=== PATIENT | female | born 1970 | race Caucasian/White ===

== ENCOUNTER 2017-06-30 17:35 | Inpatient (IN) ==
--- NOTE | 2017-06-30 18:14 | Emergency Department Report ---
Abdominal Pain HPI - General Chief Complaint: Abdominal Pain <Destin Vasquez 06/30/17 21:39> Stated Complaint: Lower abd pain <Destin Vasquez 06/30/17 21:39> Time Seen by Provider: 06/30/17 18:01 <Destin Vasquez 06/30/17 21:39> Source: patient, family <Leeanna Olvera 06/30/17 18:17> Mode of arrival: ambulatory <Leeanna Olvera 06/30/17 18:17> Limitations: no limitations <Leeanna Olvera 06/30/17 18:17> - History of Present Illness HPI narrative: Pt began having back pain saturday night which then moved to lower abd early saturday morning. Pt states pain has continued since, describes as cramping sharp pain. Denies N/V/D. reports last BM was saturday 2 days ago and has decreased appetite and po intake. Pain improves with rest worse with activity. Surgical history hyst 4 years ago <Leeanna Olvera 06/30/17 18:17> MD complaint: abdominal pain <Leeanna Olvera 06/30/17 18:17> Onset (ago): day(s) <Leeanna Olvera 06/30/17 18:17> Consistency: colicky <Leeanna Olvera 06/30/17 18:17> Location: LLQ, RLQ, epigastric <Leeanna Olvera 06/30/17 18:17> Severity: moderate <Leeanna Olvera 06/30/17 18:17> Quality: cramping, sharp <Leeanna Olvera 06/30/17 18:17> Radiation: none <Leeanna Olvera 06/30/17 18:17> Relieving factors: rest <Leeanna Olvera 06/30/17 18:17> Exacerbating factors: movement <Leeanna Olvera 06/30/17 18:17> Associated symptoms: denies other symptoms <Leeanna Olvera 06/30/17 18: 17> - Related Data Home Medications Medication Instructions Recorded Confirmed Celebrex (Celecoxib) 50 mg capsule 100 mg PO BID 03/21/17 06/30/17 cholecalciferol (vitamin D3) 1,000 1,000 unit PO BID 03/21/17 06/30/17 unit capsule fluoxetine 40 mg capsule 40 mg PO BID 03/21/17 06/30/17 Ultram (Tramadol) 50 mg tablet 50 mg PO DAILY PRN #0 06/03/17 06/30/17 amitriptyline 10 mg tablet 10 mg PO HS PRN tab 06/03/17 06/30/17 aspirin 81 mg tablet,delayed 81 mg PO DAILY tab 06/03/17 06/30/17 release duloxetine 30 mg capsule,delayed 30 mg PO DAILY cap 06/03/17 06/30/17 release multivitamin tablet 1 tab PO QAM 06/03/17 06/30/17 Plexus Supplements 1 dose PO DAILY 06/30/17 06/30/17 Previous Rx's Medication Instructions Recorded cyclobenzaprine 10 mg tablet 10 mg PO HS #90 tab 04/15/17 Prilosec (Omeprazole) 40 mg 40 mg PO DAILY #90 cap 04/25/17 capsule,delayed release amlodipine 5 mg tablet 5 mg PO BID #180 tab 05/02/17 metformin 1,000 mg tablet 1,000 mg PO BID #180 tab 05/24/17 estradiol 1 mg tablet 1 mg PO DAILY #90 tab 05/29/17 alprazolam 1 mg tablet 1 mg PO BID PRN #60 tab 06/06/17 topiramate 50 mg tablet 50 mg PO BID #180 tab 06/06/17 <Destin Vasquez 06/30/17 21:39> Allergies Allergy/AdvReac Type Severity Reaction Status Date / Time metoclopramide [From Reglan] Allergy Verified 06/30/17 17:46 <Destin Vasquez 06/30/17 21:39> Review of Systems All systems: reviewed and negative except as stated <Leeanna Olvera 08/06 18:17> Constitutional: Denies: fever, chills <Leeanna Olvera 06/30/17 18:17> Cardiovascular: Denies: chest pain <Leeanna Olvera 06/30/17 18:17> Gastrointestinal: Reports: abdominal pain. Denies: nausea, vomiting, diarrhea, constipation <Leeanna Olvera 06/30/17 18:17> Genitourinary: Denies: urgency, dysuria <Leeanna Olvera 06/30/17 18:17> [facility] Patient Stated Medical History Hypertension Yes Clinic Medical History (Last Updated 06/03/17 @ 13:04 by Eliana Alexander LPN) HTN (hypertension) (Chronic Medical) Major depressive disorder, recurrent, mild (Chronic Medical) Fibromyalgia (Chronic Medical) Osteoarthritis (Chronic Medical) Low back pain (Chronic Medical) Obesity (Chronic Medical) <Destin Vasquez - 06/30/17 21:39> Clinic Medical History (Last Updated 06/03/17 @ 13:04 by Eliana Alexander LPN) HTN (hypertension) (Chronic Medical) Major depressive disorder, recurrent, mild (Chronic Medical) Fibromyalgia (Chronic Medical) Osteoarthritis (Chronic Medical) Low back pain (Chronic Medical) Obesity (Chronic Medical) <Leeanna Olvera 06/30/17 18:17> Surgical History: Tonsillectomy 1983. Lap hysterectomy with BSO 05/2012. Hemorrhoidectomy as larry. in HS <Leeanna Olvera 06/30/17 18:17> Family History: Family History (Last Updated 06/03/17 @ 13:11 by Eliana Alexander LPN) Mother Obesity Pre-diabetes prior to wt loss Father CVA (cerebral vascular accident) possible Unknown Diabetes mellitus multiple grandparents <Destin Vasquez - 06/30/17 21:39> Family History (Last Updated 06/03/17 @ 13:11 by Eliana Alexander LPN) Mother Obesity Pre-diabetes prior to wt loss Father CVA (cerebral vascular accident) possible Unknown Diabetes mellitus multiple grandparents <Leeanna Olvera 06/30/17 18:17> - Social History Smoking status: Never smoker <Leeanna Olvera 06/30/17 18:17> Physical Exam - Limitations Limitations: no limitations <Leeanna Olvera 06/30/17 18:17> - General General appearance: alert, in no apparent distress <Leeanna Olvera 06/30 18:17> - Normal Exams: Eyes:: Pupils are PERRLA w/ EOMI <Leeanna Olvera 06/30/17 18:17> Neck:: Full range of motion <Leeanna Olvera 06/30/17 18:17> Chest/Respirations:: Clear all larkin, with good airflow, and symmetry bilaterally <Leeanna Olvera 06/30/17 18:17> Cardiovascular:: Regular rate and rhythm, without murmur or gallop, Pulses 2+ all extremities <Leeanna Olvera 06/30/17 18:17> Musculoskeletal:: No tenderness, good range of motion <Leeanna Olvera 18:17> Integumentary:: No rashes <Leeanna Olvera 06/30/17 18:17> Neurological:: Patient is alert, and oriented <Leeanna Olvera 06/30/17 18:17> Psychiatric:: Patient exhibits, appropriate attention, emotion and affect < Leeanna Olvera 06/30/17 18:17> - Abdominal Exam Abdominal exam: Present: soft, tenderness, guarding, hypoactive bowel sounds. Absent: distention <Leeanna Olvera 06/30/17 18:17> Course - Consultations Consultation #1: Dr Finnegan <Leeanna Olvera 06/30/17 20:11> Time: 19:52 <Leeanna Olvera 06/30/17 20:11> Consultation #2: Dr Hennessy <MayLeeanna Vogel 06/30/17 20:11> Time: 19:59 <Leeanna Olvera 06/30/17 20:11> Vital Signs Temperature 98.4 F 06/30/17 17:38 Pulse Rate 84 06/30/17 17:38 Respiratory Rate 14 06/30/17 17:38 Blood Pressure 133/71 06/30/17 17:38 Pulse Oximetry 96 06/30/17 17:38 Temperature 97.6 F 06/30/17 20:45 Pulse Rate 71 06/30/17 20:45 Respiratory Rate 18 06/30/17 20:45 Blood Pressure 140/81 H 06/30/17 20:45 Pulse Oximetry 100 06/30/17 20:45 <Destin Vasquez - 06/30/17 21:39> Vital Signs Temperature 98.4 F 06/30/17 17:38 Pulse Rate 84 06/30/17 17:38 Respiratory Rate 14 06/30/17 17:38 Blood Pressure 133/71 06/30/17 17:38 Pulse Oximetry 96 06/30/17 17:38 Temperature 98.4 F 06/30/17 17:38 Pulse Rate 84 06/30/17 17:38 Respiratory Rate 14 06/30/17 17:38 Blood Pressure 133/71 06/30/17 17:38 Pulse Oximetry 96 06/30/17 17:38 <Leeanna Olvear - 06/30/17 18:17> Abdominal Pain - MDM Narrative Medical decision making narrative: Antibiotic therapy to handled by hospitalist service at request of accepting physician. <Destin Vasquez - 06/30/17 21:39> Pt presents with "sharp cramping" abd pain x 2 days. Denies N/V/D, but dies have decreased appetite, and pain that improves with rest. Significant labs with no acute findings. V rad read of CT abd shows acute sigmoid duverticulitis with a contained perforation and pericolonic phlegmon, but no coalescent abscess. Dr Finnegan notified of pt and condition, he states pt is non surgical and can be treated with antibiotics and to call tele hospitalist for admit with surgical consult. Dr Hennessy per tele hospitalist agreed to accept pt. <Leeanna Olvera - 06/30/17 20:11> - Differential Diagnosis Differential diagnosis: Likely: abdominal pain, calculus of kidney, constipation , small bowel obstruction <Leeanna Olvera 06/30/17 18:17> - Medical Records Attestation: I reviewed the patient's medical records. <Leeanna Olvera 06/30/17 20:11> - Lab Data Attestation: I reviewed the patient's lab results. <Leeanna Olvera 06/30 20:11> Result diagrams: 06/30/17 18:26 06/30/17 18:26 <Destin Vasquez - 06/30/17 21:39> Lab Results 06/30/17 06/30/17 06/30/17 Range/Units 18:26 18:26 18:26 WBC 10.1 (4.5-11.0) T/MM3 RBC 4.07 (4.00-5.20) M/MM3 Hgb 12.8 (12-16) GM/DL Hct 38.7 (36-46) % MCV 95.1 (80-100) UM3 MCH 31.4 (26-34) UUG MCHC 33.1 (31-37) GM/DL RDW Std Deviation 45.3 (36.9-50.2) FL Plt Count 329 (130-400) T/MM3 MPV 9.6 (9.4-12.4) UM3 Immature Gran % (Auto) 0.2 (0.0-0.5) % Neut % (Auto) 65.3 (33-66) % Lymph % (Auto) 27.7 (23-45) % [place] % (Auto) 5.6 (0-9.0) % Eos % (Auto) 1.0 (0-4) % Baso % (Auto) 0.2 (0-2) % Neut # 6.6 (1.8-7.7) T/MM3 Lymph # 2.8 (1-4.8) T/MM3 [place] # 0.6 (0-0.8) T/MM3 Eos # 0.1 (0-0.5) T/MM3 Baso # 0.0 (0-0.2) T/MM3 Abs Immat Gran (auto) 0.02 (0.00-0.03) T/MM3 Turbidity < 20 (0-20) Sodium 145 H (134-144) MEQ/L Potassium 4.1 (3.6-5) MEQ/L Chloride 110 H (98-107) MEQ/L Carbon Dioxide 25 (22-30) MEQ/L Anion Gap 10 (5-15) MEQ/L BUN 9.0 (7-17) MG/DL Creatinine 0.7 (0.7-1.2) MG/DL GFR Calculation 90 BUN/Creatinine Ratio 13 (6-26) RATIO Glucose 90 (65-110) MG/DL Calculated Osmolality 278 (261-280) MOSM/KG Calcium 9.5 (8.4-10.2) MG/DL Total Bilirubin 0.50 (0.20-1.30) MG/DL Icterus Index < 2 (0-7) AST 12 L (14-36) U/L ALT 29 (9-52) U/L Alkaline Phosphatase 88 (38-126) U/L Troponin I < 0.012 (0-0.12) ng/ml Total Protein 7.3 (6.3-8.2) G/DL Albumin 4.3 (3.5-5.0) G/DL Globulin 3.0 (2.4-3.6) G/DL Albumin/Globulin Ratio 1.4 (1.1-2.2) RATIO Specimen Hemolysis < 15 (0-25) Ur Collection Type Urine, clean catch Urine Color Yellow (YELLOW) Urine Clarity Clear Urine pH 5.5 (5.0-8.0) Ur Specific [place] 1.015 (1.015-1.025) Urine Protein Negative (NEGATIVE) Urine Glucose (UA) Negative (NEGATIVE) Urine Ketones Negative (NEGATIVE) Urine Occult Blood Negative (NEGATIVE) Urine Nitrate Negative (NEGATIVE) Urine Bilirubin Negative (NEGATIVE) Urine Urobilinogen 0.2 (NORMAL) EU/DL Ur Leukocyte Esterase Negative (NEGATIVE) Urinalysis Comment Microscopic not ind. <Destin Vasquez 06/30/17 21:39> - Radiology Data Attestation: I reviewed the patient's radiology results. <Leeanna Olvera R 06/30/17 20:11> per V rad read <Leeanna Olvera R 06/30/17 20:11> Disposition Clinical Impression: Fibromyalgia Diverticulitis Qualifiers: Diverticulitis site: large intestine Diverticulitis bleeding: without bleeding Diverticulitis complication: with perforation and without abscess Qualified Code (s): K57.20 - Diverticulitis of large intestine with perforation and abscess without bleeding HTN (hypertension) Qualifiers: Hypertension type: essential hypertension Qualified Code(s): I10 - Essential ( primary) hypertension Abdominal pain Qualifiers: Abdominal location: left lower quadrant Qualified Code(s): R10.32 - Left lower quadrant pain <Destin Vasquez 06/30/17 21:39> Disposition: 02 To [facility] Acute Care <Destin Vasquez 06/30/17 21:39> Condition: Stable for Transport <Destin Vasquez 06/30/17 21:39> Care Plan: Physician Care Plan Problem: Diverticulitis Goal: Follow up with primary care provider Instructions: Take medications and follow care plan as discussed/written < Destin Vasquez - 06/30/17 21:39> Prescriptions: No Action Plexus Supplements 1 dose PO DAILY cyclobenzaprine 10 mg tablet 10 mg PO HS #90 tab metformin 1,000 mg tablet 1,000 mg PO BID #180 tab estradiol 1 mg tablet 1 mg PO DAILY #90 tab Ultram (Tramadol) 50 mg tablet 50 mg PO DAILY PRN #0 PRN Reason: pain amitriptyline 10 mg tablet 10 mg PO HS PRN tab PRN Reason: Prn Orders aspirin 81 mg tablet,delayed release 81 mg PO DAILY tab duloxetine 30 mg capsule,delayed release 30 mg PO DAILY cap topiramate 50 mg tablet 50 mg PO BID #180 tab Prilosec (Omeprazole) 40 mg capsule,delayed release 40 mg PO DAILY #90 cap amlodipine 5 mg tablet 5 mg PO BID #180 tab multivitamin tablet 1 tab PO QAM alprazolam 1 mg tablet 1 mg PO BID PRN #60 tab PRN Reason: insomnia <Destin Vasquez - 06/30/17 21:39> Referrals: Amandeep Hartley MD [Family Provider] - <Destin Vasquez - 06/30/17 21: 39> Time of Disposition: 20:11 <Leeanna Olvera - 06/30/17 20:11> - Seen By: midlevel <Leeanna Olvera - 06/30/17 20:11>
[2017-06-30] MEDS: SALINE FLUSH 10ml SYRINGE IVF PRN ×2 (18:27→20:51)
--- OUTSIDE RECORDS SUMMARY | 2017-06-30 18:58 | External Medical Summary | Referral Summary ---
:1970 Author Care Team Providers Name Role Phone Amandeep Hartley Primary Care Physician Encounter [facility] [id number] Date(s): 02/16/15 - 02/16/15 [facility] [address] [place], [place] [address] Discharge Diagnosis: Osteoarthritis Discharge Diagnosis: Back pain Discharge Diagnosis: Hyperkalemia Discharge Diagnosis: Edema Discharge Disposition: Home or Self Care Attending Physician: Huyen Frey MD Admitting Physician: Huyen Frey MD Referring Physician: Amandeep Hartley MD Vital Signs Most recent to oldest [Reference Range]: 1 Temperature Oral [35.8-37.3 degC] 36.7 degC (02/16/15 3:25 PM) Peripheral Pulse Rate [60-100 bpm] 93 bpm (02/16/15 3:25 PM) Blood Pressure [90-140/60-90 mmHg] 138/86 mmHg (02/16/15 3:25 PM) Problem List Condition Effective Dates Status Health Status Informant Depression(Confirmed) Active Fibromyalgia(Confirmed) Active Insomnia(Confirmed) Active Migraine(Confirmed) Active Obesity(Confirmed) Active patient Allergies, Adverse Reactions, Alerts Substance Reaction Severity Status Reglan Active Medications Aspir-Low 81 mg, Oral, Daily, 0 Refill(s) Start Date: 02/02/15 Status: Orderedcyclobenzaprine 10 mg oral tablet 1 tabs, Oral, Bedtime (once a day), as needed for spasm, # 30 tabs, 0 Refill(s) Start Date: 02/02/15 Status: OrderedCymbalta 60 mg oral delayed release capsule 1 caps, Oral, Daily, 0 Refill(s) Start Date: 02/02/15 Status: Orderedestradiol 1 mg oral tablet 1 tabs, Oral, Daily, 0 Refill(s) Start Date: 02/02/15 Status: OrderedFLUoxetine 40 mg oral capsule 1 caps, Oral, Daily, 0 Refill(s) Start Date: 02/02/15 Status: Orderedgabapentin 300 mg oral capsule 1 caps, Oral, TID, # 90 caps, 2 Refill(s), Pharmacy: [id number], 1 caps Oral TID Start Date: 02/16/15 Status: Orderedhydrochlorothiazide 12.5 mg oral tablet 1 tabs, Oral, Daily, # 30 tabs, 2 Refill(s), Pharmacy: [id number], 1 tabs Oral Daily Start Date: 02/16/15 Status: Orderedibuprofen 200 mg oral tablet tabs, Oral, q6hr, 0 Refill(s) Start Date: 02/02/15 Status: OrderedNorvasc 5 mg oral tablet 1 tabs, Oral, BID, 0 Refill(s) Start Date: 02/02/15 Status: Orderedomeprazole 40 mg oral delayed release capsule 1 caps, Oral, Daily, 0 Refill(s) Start Date: 02/02/15 Status: Orderedsenna 2 tabs, Oral, Bedtime (once a day), 0 Refill(s) Start Date: 02/02/15 Status: OrderedtraMADol 50 mg oral tablet 1 tabs, Oral, BID, as needed for pain, 0 Refill(s) Start Date: 02/02/15 Status: OrderedTylenol Extra Strength mg, Oral, q6hr, 0 Refill(s) Start Date: 02/02/15 Status: OrderedXanax 1 mg oral tablet 1 tabs, Oral, Bedtime (once a day), as needed for anxiety, 0 Refill(s) Start Date: 02/02/15 Status: Ordered Results No data available for this section Immunizations No data available for this section Procedures Procedure Date Related Diagnosis Body Site Hysterectomy Tonsillectomy Social History Social History Type Response Smoking Status Never smoker; Type: Cigarettes Assessment and Plan Extracted from: Title: Office note Author: Huyen Frey MD Date: 02/16/15 Assessment/Plan 1.Osteoarthritis She has osteoarthritis. She is improved with the gabapentin. We will continue to 300 mg 3 times a day. 2.Back pain She has some continued back pain. We discussed possibly trying a TENS unit and she was given a prescription. We also discussed considering the epidural injections which she will consider more. 3.Edema She may be having fluid retention from the gabapentin. I will try low dose of diuretic. 4.Hyperkalemia She has had a mild hyperkalemia of unclear etiology. She believes that she has been tested for adrenal sufficiency previously. She is not clear regarding other evaluation in the past. She also was noted on her lab work to have mild hypocalcemia with a normal albumin so does not appear to be secondary to low abdomen level. These may improved with the hydrochlorothiazide thou gh the etiology is not known. I will defer to her primary care doctor if any further evaluation or monitoring is needed for these findings. Follow-up in 2 months. Orders: gabapentin, 1 caps, Oral, TID, # 90 caps, 2 Refill(s), Pharmacy: [id number], 1 caps Oral TID hydrochlorothiazide, 1 tabs, Oral, Daily, # 30 tabs, 2 Refill(s), Pharmacy: [id number], 1 tabs Oral Daily
--- OUTSIDE RECORDS SUMMARY | 2017-06-30 18:58 | External Medical Summary | Referral Summary ---
:1970 Author Organization [facility] Address [address] [place] [address] ROS[place] Solano [address] Care Team Providers Name Role Phone Amandeep Hartley Primary Care Physician Encounter [facility] Date(s): 04/14/15 - 04/14/15 [facility] [address] [place] [address] [place] [phone] [place] Discharge Diagnosis: Lower back pain Discharge Diagnosis: Radiculopathy Discharge Disposition: 01-Home or Self Care Attending Physician: Huyen Frey MD Admitting Physician: Huyen Frey MD Referring Physician: Amandeep Hartley MD Vital Signs Most recent to oldest [Reference Range]: 1 Peripheral Pulse Rate [60-100 bpm] 87 bpm (04/14/15 3:03 PM) Blood Pressure [90-140/60-90 mmHg] 138/90 mmHg (04/14/15 3:03 PM) Problem List Condition Effective Dates Status [...] 02/02/15 Status: Orderedgabapentin 300 mg oral capsule 300 mg 1 caps, Oral, TID, # 90 caps, 1 Refill(s), Pharmacy: [id number], 1 caps Oral TID Start Date: 05/10/15 Status: Orderedhydrochlorothiazide 12.5 mg oral tablet See Instructions, TAKE ONE TABLET BY MOUTH ONCE DAILY, # 30 tabs, 0 Refill(s), Pharmacy: [id number], TAKE ONE TABLET BY MOUTH ONCE DAILY Start Date: 05/19/15 Status: Orderedibuprofen 200 mg oral tablet tabs, [...] Assessment and Plan Extracted from: Title: Office Visit Note Author: Huyen Frey MD Date: 04/14/15 Assessment/Plan Lower back pain We will order MRI of her lower back. Suspect that her pain along the lower extremities is coming from her back. We will continue the gabapentin currently. She is not sure she will like to proceed with injections. Ordered: MRI Spine Lumbar w/o Contrast Radiculopathy As above we will obtain a MRI toassess thelumbar spine. Ordered: MRI Spine Lumbar w/o Contrast
--- OUTSIDE RECORDS SUMMARY | 2017-06-30 18:58 | External Medical Summary | Referral Summary ---
:1970 Author Care Team Providers Name Role Phone Amandeep Hartley Primary Care Physician Encounter [facility] [id number] Date(s): 02/02/15 - 02/02/15 [facility] [address] [place], [place] [address] Discharge Diagnosis: Radiculopathy Discharge Diagnosis: Dry mouth Discharge Diagnosis: Knee pain Discharge Diagnosis: Myalgia Discharge Diagnosis: Back pain Discharge Diagnosis: Raynauds phenomenon Discharge Disposition: Home or Self Care Attending Physician: Huyen Frey MD Admitting Physician: Huyen Frey MD Vital Signs Most recent to oldest [Reference Range]: 1 Peripheral Pulse Rate [60-100 bpm] 78 bpm (02/02/15 3:32 PM) Blood Pressure [90-140/60-90 mmHg] 134/68 mmHg (02/02/15 3:32 PM) Problem List Condition Effective Dates Status [...] Daily, 0 Refill(s) Start Date: 02/02/15 Status: Orderedibuprofen 200 mg oral tablet tabs, [...] Refill(s) Start Date: 02/02/15 Status: Ordered Results Hematology Most recent to oldest [Reference Range]: 1 WBC [4.8-10.8 K/uL] 8.4 K/uL (02/02/15 4:30 PM) RBC [4.00-5.20 M/uL] 4.34 M/uL (02/02/15 4:30 PM) Hgb [12.0-16.0 gm/dL] 13.2 gm/dL (02/02/15 4:30 PM) Hct [37.0-47.0 %] 40.7 % (02/02/15 4:30 PM) MCV [82.0-99.0 fL] 93.8 fL (02/02/15 4:30 PM) MCH [27.0-32.0 pg] 30.4 pg (02/02/15 4:30 PM) MCHC [32.0-36.0 gm/dL] 32.4 gm/dL (02/02/15 4:30 PM) RDW [11.5-14.5 %] 14.5 % (02/02/15 4:30 PM) Platelet [150-400 K/uL] 344 K/uL (02/02/15 4:30 PM) MPV [8.8-14.8 fL] 10.2 fL (02/02/15 4:30 PM) Immature Granulocytes [0.0-1.0 %] 0.1 % (02/02/15 4:30 PM) Neutrophils [51-75 %] 61 % (02/02/15 4:30 PM) Lymphocytes [20-46 %] 33 % (02/02/15 4:30 PM) Monocytes [4-11 %] 6 % (02/02/15 4:30 PM) Eosinophils [0-4 %] 1 % (02/02/15 4:30 PM) Basophils [0-2 %] 0 % (02/02/15 4:30 PM) Neutro Absolute [1.90-7.00 THOUS] 5.12 THOUS (02/02/15 4:30 PM) Lymph Absolute [0.80-3.30 THOUS] 2.74 THOUS (02/02/15 4:30 PM) [place] Absolute [0.30-1.00 THOUS] 0.49 THOUS (02/02/15 4:30 PM) Eos Absolute [0.00-0.50 THOUS] 0.05 THOUS (02/02/15 4:30 PM) Baso Absolute [0.00-0.20 THOUS] 0.02 THOUS (02/02/15 4:30 PM) Chemistry Most recent to oldest [Reference Range]: 1 Sodium Lvl [135-144 mEq/L] 141 mEq/L (02/02/15 4:30 PM) Potassium Lvl [3.5-5.2 mEq/L] 5.6 mEq/L *HI* (02/02/15 4:30 PM) Chloride [99-111 mEq/L] 108 mEq/L (02/02/15 4:30 PM) CO2 [22-31 mEq/L] 22 mEq/L (02/02/15 4:30 PM) AGAP [3-20] 11 (02/02/15 4:30 PM) BUN [7-19 mg/dL] 17 mg/dL (02/02/15 4:30 PM) Glucose Lvl [70-99 mg/dL] 86 mg/dL (02/02/15 4:30 PM) Creatinine Lvl [0.57-1.11 mg/dL] 0.58 mg/dL (02/02/15 4:30 PM) eGFR [>60 mL/min] >60 mL/min 1 (02/02/15 4:30 PM) Calcium Lvl [8.9-10.5 mg/dL] 7.2 mg/dL *LOW* (02/02/15 4:30 PM) Albumin Lvl [3.5-5.0 gm/dL] 4.3 gm/dL (02/02/15 4:30 PM) Total Protein [6.4-8.3 gm/dL] 6.7 gm/dL (02/02/15 4:30 PM) Globulin [1.8-4.0 gm/dL] 2.4 gm/dL (02/02/15 4:30 PM) ALT [0-55 unit/L] 12 unit/L (02/02/15 4:30 PM) AST [5-34 unit/L] 11 unit/L (02/02/15 4:30 PM) Alk Phos [40-150 unit/L] 101 unit/L (02/02/15 4:30 PM) Bili Total [0.2-1.2 mg/dL] 0.2 mg/dL (02/02/15 4:30 PM) 1Result Comment: Multiply eGFR results by 1.21 for race. Immunizations No data available for this section Procedures Procedure Date Related Diagnosis Body Site Hysterectomy Tonsillectomy Social History Social History Type Response Smoking Status Never smoker; Type: Cigarettes Assessment and Plan No data available for this section
--- OUTSIDE RECORDS SUMMARY | 2017-06-30 18:58 | External Medical Summary | Referral Summary ---
:1970 Author Organization [facility] Address [address] [place] [address] Care Team Providers Name Role Phone Amandeep Hartley Primary Care Physician Encounter [facility] Date(s): 02/16/15 - 02/16/15 [facility] [address] [place] [address] [place] Discharge Diagnosis: Osteoarthritis Discharge Diagnosis: Back pain Discharge Diagnosis: Hyperkalemia Discharge Diagnosis: Edema Discharge Disposition: -Home or Self Care Attending Physician: Huyen Frey [...] TID, # 90 caps, 1 Refill(s), Pharmacy: [id number], 1 caps Oral TID Start Date: 05/10/15 Status: Orderedhydrochlorothiazide 12.5 mg oral tablet See Instructions, TAKE ONE TABLET BY MOUTH ONCE DAILY, # 30 tabs, 0 Refill(s), Pharmacy: [facility], TAKE ONE TABLET BY [...] TID, # 90 caps, 2 Refill(s), Pharmacy: [facility], 1 caps Oral TID hydrochlorothiazide, 1 tabs, Oral, Daily, # 30 tabs, 2 Refill(s), Pharmacy: [facility], 1 tabs Oral Daily
--- OUTSIDE RECORDS SUMMARY | 2017-06-30 18:58 | External Medical Summary | Referral Summary ---
:1970 Author Organization [facility] Address [address] [place] [address] [place] [address] Care Team Providers Name Role Phone Amandeep Hartley Primary Care Physician Encounter [facility] Date(s): 04/14/15 - 04/14/15 [facility] [address] [place] [address] [place] [phone] [place] Discharge Diagnosis: Lower [...] TID, # 90 caps, 1 Refill(s), Pharmacy: [facility], 1 caps Oral TID Start Date: 05/10/15 Status: Orderedhydrochlorothiazide 12.5 mg oral tablet See Instructions, TAKE ONE TABLET BY MOUTH ONCE DAILY, # 30 tabs, 0 Refill(s), Pharmacy: [facility], TAKE ONE TABLET BY MOUTH [...]
[2017-06-30] MEDS ORDERED: ACETAMINOPHEN 325 MG TABLET PO PRN (20:06)
[2017-06-30] MEDS ORDERED: ONDANSETRON 4 MG/2 ML INJECTION IVP PRN (20:06)
--- NOTE | 2017-06-30 20:11 | CT Scan Report ---
Indication: Lower abdominal pain and decreased appetite PROCEDURE: CT abdomen pelvis wo con: Encounter: Initial Comparison: None Technique: Axial CT images were performed through the abdomen and pelvis without intravenous contrast. Coronal and sagittal two-dimensional reformats. Automated Exposure Control and Iterative Reconstruction dose reducing techniques were utilized. Findings: Atelectasis in both lower lobes. The unenhanced contours of the liver are unremarkable. Gallbladder is mildly distended. The spleen with accessory splenules, pancreas and adrenal glands are within normal limits. Kidneys are normal. No abdominal or pelvic adenopathy. Bladder is normal. Uterus is absent. Trace free pelvic fluid. Inflammation along of the proximal to mid sigmoid colon with multiple diverticula. No obvious free air or abscess appreciated. There is a focus of gas seen on axial image #66 that could be within the large exophytic diverticulum or represent a tiny contained microperforation with surrounding phlegmon. No evidence of a bowel obstruction. The appendix is normal. Bone windows show mild degenerative change in the spine. Impression: Acute sigmoid diverticulitis. The preliminary report mentions a small area of extraluminal gas which I feel could be contained within a diverticulum. Small contained microperforation cannot be entirely excluded. No drainable abscess currently. There is a preliminary report by [employer]. .
[2017-06-30] MEDS ORDERED: AMITRIPTYLINE 10 MG TABLET PO PRN (20:14)
[2017-06-30 20:50] VITALS: BMI 33.2
[2017-06-30] MEDS: NS 1,000 ML IV SCH (20:51)
[2017-06-30] MEDS: MetroNIDAZOLE PB 500 MG/100 ML BAG IV SCH (21:04)
--- NOTE | 2017-06-30 21:17 | History & Physical Report ---
History of Present Illness Date: 06/30/17 Chief complaint: abominal pain HPI: The pt is a 46 yo who developed bilat abd pain 3 days ago, woke pt up from sleep , and has been constant and worsening since. She describes the pain as crampy, sharp. nonradiating, worse with any type of movement, not associated with loose stools or diarrhea, no melana, bloody stools. fever, chills. 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 Review of Systems - Constitutional Constitutional: Present: as per HPI, chills. Absent: fatigue, fever(s) - Cardiovascular Cardiovascular: Absent: chest pain - Respiratory Respiratory: Present: as per HPI - Gastrointestinal Gastrointestinal: Present: abdominal pain. Absent: change in bowel habits, coffee ground emesis, diarrhea [facility] Medical History (Last Updated 06/03/17 @ 13:04 by Eliana Alexander LPN) HTN (hypertension) (Chronic Medical) Major depressive disorder, recurrent, mild (Chronic Medical) Fibromyalgia (Chronic Medical) Osteoarthritis (Chronic Medical) Low back pain (Chronic Medical) Obesity (Chronic Medical) Surgical History: Tonsillectomy 1983. Lap hysterectomy with BSO 05/2012. Hemorrhoidectomy as larry. in HS Family History: Family History (Last Updated 06/03/17 @ 13:11 by Eliana Alexander LPN) Mother Obesity Pre-diabetes prior to wt loss Father CVA (cerebral vascular accident) possible Unknown Diabetes mellitus multiple grandparents - Social History Smoking status: Never smoker Substance use type: does not use Alcohol intake frequency: does not drink Housing: house Household members: spouse Medications Home Medications Medication Instructions Recorded Confirmed Type Celebrex (Celecoxib) 50 mg capsule 100 mg PO BID 03/21/17 06/30/17 History cholecalciferol (vitamin D3) 1,000 1,000 unit PO BID 03/21/17 06/30/17 History unit capsule fluoxetine 40 mg capsule 40 mg PO BID 03/21/17 06/30/17 History Ultram (Tramadol) 50 mg tablet 50 mg PO DAILY PRN #0 06/03/17 06/30/17 History amitriptyline 10 mg tablet 10 mg PO HS PRN tab 08/14/17 09/10/17 History aspirin 81 mg tablet,delayed 81 mg PO DAILY tab 06/03/17 06/30/17 History release duloxetine 30 mg capsule,delayed 30 mg PO DAILY cap 06/03/17 06/30/17 History release multivitamin tablet 1 tab PO QAM 06/03/17 06/30/17 History Plexus Supplements 1 dose PO DAILY 06/30/17 06/30/17 History Allergies Allergy/AdvReac Type Severity Reaction Status Date / Time metoclopramide [From Reglan] Allergy Verified 06/30/17 17:46 Exam Vital Signs: Temperature 97.6 F 06/30/17 20:45 Pulse Rate 71 06/30/17 20:45 Respiratory Rate 18 06/30/17 20:45 Blood Pressure 140/81 H 06/30/17 20:45 Pulse Oximetry 100 06/30/17 20:45 Height/Weight/BMI: Height 1.55 m Weight 79.8 kg Body Mass Index 33.2 - Constitutional Present: mild distress - Routine HEENT Exam Head: Present: normocephalic - Routine Neck Exam Present: supple - Routine Respiratory Exam Present: CTA bilaterally - Routine Cardiovascular Exam Present: RRR, no murmur - Routine Abdominal Exam Present: soft, normoactive bowel sounds, tenderness. Absent: guarding, firm, rigid - Routine Extremities Exam Present: no edema Results - Labs CBC & Chem 7: 06/30/17 18:26 06/30/17 18:26 Assessment and Plan (1) Diverticulitis Current visit: Yes Status: Acute 06/30/17 21:19 Will start the pt on IVF, cipro _ flagyl IV Q8 hr, recheck labs in am, prn pain meds. clear diet for now, general surgery consulted through the ER. (2) HTN (hypertension) Current visit: Yes Status: Chronic (3) Major depressive disorder, recurrent, mild Current visit: No Status: Chronic (4) Fibromyalgia Current visit: Yes Status: Chronic Hospital Course Summary Disclaimer: The visit summary below is not to be considered part of the above Progress Note.
[2017-06-30] MEDS: CIPROFLOXACIN PB 400 MG/200 ML BAG IV SCH (22:06)
[2017-06-30] MEDS: AMLODIPINE 5 MG TABLET PO SCH (22:07)
[2017-06-30] MEDS: TRAMADOL 50 MG TABLET PO PRN (22:09)
[2017-06-30] MEDS: ALPRAZolam 1 MG TABLET PO PRN (22:13)
[2017-07-01] MEDS: MetroNIDAZOLE PB 500 MG/100 ML BAG IV SCH ×3 (04:25→21:28)
[2017-07-01] MEDS: TOPIRAMATE 25 MG TABLET PO SCH ×3 (06:26→20:21)
[2017-07-01] MEDS: TRAMADOL 50 MG TABLET PO PRN (07:07)
[2017-07-01] MEDS: NS 1,000 ML IV SCH ×3 (07:15→23:07)
[2017-07-01] MEDS: CIPROFLOXACIN PB 400 MG/200 ML BAG IV SCH ×2 (08:03→20:16)
[2017-07-01] MEDS ORDERED: ESTRADIOL 1 MG TABLET PO SCH (09:00)
[2017-07-01] MEDS: ASPIRIN *EC* 81 MG TABLET PO SCH (09:10)
[2017-07-01] MEDS: DULOXETINE 30 MG CAPSULE PO SCH (09:10)
[2017-07-01] MEDS: AMLODIPINE 5 MG TABLET PO SCH ×2 (09:10→20:20)
[2017-07-01] MEDS: MORPHINE SULFATE 2 MG SYRINGE IVP PRN ×3 (09:22→22:13)
--- NOTE | 2017-07-01 15:02 | General Surgery Consult Note ---
Consult date: 07/01/17 Attending Physician: Dimitris Tucker MD Reason for consult: abdominal pain History of present illness: Per Dr. Jacinto [facility] Patient Stated Medical History Hypertension Yes Other GI Yes: Abdominal pain - Diverticulitis Hx Urinary Tract Infection Yes Other Musculoskeletal Fibromyalgia Depression Yes Clinic Medical History (Last Updated 06/03/17 @ 13:04 by Eliana Alexander LPN) HTN (hypertension) (Chronic Medical) Major depressive disorder, recurrent, mild (Chronic Medical) Fibromyalgia (Chronic Medical) Osteoarthritis (Chronic Medical) Low back pain (Chronic Medical) Obesity (Chronic Medical) Surgical History: Tonsillectomy 1983. Robotic ROYAL-BSO 06/20/2012 Dr. Cheung. Hemorrhoidectomy as larry. in HS Family History: Family History (Last Updated 06/03/17 @ 13:11 by Eliana Alexander LPN) Mother Obesity Pre-diabetes prior to wt loss Father CVA (cerebral vascular accident) possible Unknown Diabetes mellitus multiple grandparents - Social History Smoking status: Never smoker Alcohol intake frequency: does not drink Household members: spouse Current occupational status: employed (day care ) Medications Home Medications Medication Instructions Recorded Confirmed Type Celebrex (Celecoxib) 50 mg capsule 100 mg PO BID 03/21/17 06/30/17 History cholecalciferol (vitamin D3) 1,000 1,000 unit PO BID 03/21/17 06/30/17 History unit capsule fluoxetine 40 mg capsule 40 mg PO BID 03/21/17 06/30/17 History Ultram (Tramadol) 50 mg tablet 50 mg PO DAILY PRN #0 06/03/17 06/30/17 History amitriptyline 10 mg tablet 10 mg PO HS PRN tab 06/03/17 06/30/17 History aspirin 81 mg tablet,delayed 81 mg PO DAILY tab 06/03/17 06/30/17 History release duloxetine 30 mg capsule,delayed 30 mg PO DAILY cap 06/03/17 06/30/17 History release multivitamin tablet 1 tab PO QAM 06/03/17 06/30/17 History Plexus Supplements 1 dose PO DAILY 06/30/17 06/30/17 History Allergies Allergy/AdvReac Type Severity Reaction Status Date / Time metoclopramide [From Reglan] Allergy Verified 06/30/17 17:46 Review of Systems 10-point ROS: negative except for HPI and the following: - Eyes/Ears/Nose/Throat Additional comments: wears glasses - Gastrointestinal Additional comments: last BM was Saturday (3 days ago) - Musculoskeletal Musculoskeletal: Present: back pain, joint pain (hips), other (Fibromyalgia) - Psychiatric Psychiatric: Present: other (Insomnia, takes Alprazolam and amitriptyline HS) - Vital Signs Last Vital Signs Temp 96.8 F 07/01/17 08:00 Pulse 69 07/01/17 09:20 Resp 16 07/01/17 09:20 BP 124/74 07/01/17 08:00 Pulse Ox 98 07/01/17 09:20 - Laboratory Result Diagrams: 07/01/17 06:00 07/01/17 05:19 General Surgery Results - Results Labs: 07/01/17 06:00 07/01/17 05:19 Hospital Course Summary Disclaimer: The visit summary below is not to be considered part of the above Progress Note. Sepsis Assessment - Evaluation Sepsis screening result: No Definite Risk
--- NOTE | 2017-07-01 16:09 | Consultation ---
DATE OF CONSULTATION 07/01/2017 FINDINGS Ms. Santana is a 46-year-old female whom I was asked to see today as a result of her history and physical findings of abdominal pain in conjunction with an abnormal CT scan revealing evidence for acute diverticulitis. Patient informs me that she has never had a bout of diverticulitis in the past. Patient states that on Saturday evening she was awakened as a result of pain that she had noted within her lower abdomen. The patient also states that prior to going to bed on Saturday she had noted that she was having some "shoulder blade pain". Patient states that on Saturday she attempted to go to the [facility]. She states that the pain was made worse with any type of walking. Pain was made better by somewhat sitting down. Patient states the pain became severe enough that she did leave the fair and returned home. She states that she did take multiple ibuprofen which unfortunately did not seem to help with her pain. Pain was now progressively becoming worse and was located within her left lower quadrant. Patient states that on Saturday the pain continued to worsen and she presented to the emergency room for further evaluation and was subsequently admitted for further care. The patient states that today her pain is actually worse than it was yesterday. Pain is still contained/localized to her left lower quadrant. Pain is made worse with palpation or movement. PAST MEDICAL HISTORY Performed by my nurse practitioner, Beau Merida. PAST SURGICAL HISTORY Performed by my nurse practitioner, Beau Merida. MEDICATIONS Performed by my nurse practitioner, Beau Merida. ALLERGIES Performed by my nurse practitionerBeau. SOCIAL HISTORY Performed by my nurse practitionerBeau. FAMILY HISTORY Performed by my nurse practitionerBeau. REVIEW OF SYSTEMS Performed by my nurse practitionerBeau. PHYSICAL EXAMINATION GENERAL: Mrs. Santana is a 46-year-old female who does not appear to be in acute distress. VITALS: Temperature 96.8. Pulse 69. Respirations 16. Blood pressure 124/74. SaO2 98% on room air. HEENT: Normocephalic. Pupils are equally round and react to light and accommodation. NECK: Supple without lymphadenopathy. CHEST: Clear to auscultation bilaterally. HEART: Regular rate and rhythm. Normal S1, S2, without gallops, murmurs or clicks. ABDOMEN: Palpation of the abdomen reveals it to be nontender within the right lower quadrant, right upper quadrant and left upper quadrant. The patient however is fairly tender with a component of voluntary and involuntary guarding with palpation in the left lower quadrant. Patient does not display sophia peritoneal signs but is quite tender upon palpation within the left lower quadrant. I did not appreciate any evidence for hepatomegaly or other abnormal masses. EXTREMITIES: Without clubbing, cyanosis, or edema. NEURO: Cranial nerves II-XII grossly intact. Patient without focal, motor, or sensory deficits. LABORATORY/RADIOGRAPHIC EVALUATION The patient was admitted with a white count of 10,000. Her white count has decreased now to 6.5. She is mildly anemic with hemoglobin of 11.7. BMP obtained and found to be slightly abnormal with a sodium of 145, chloride of 116. The patient did have a CT scan of her abdomen and pelvis upon admission on June 30. CT scan did reveal evidence for acute diverticulitis. There was some question of a possible micro perforation. ASSESSMENT 46-year-old female with probable acute sigmoid diverticulitis. Patient without acute surgical abdomen at this time. PLAN I did review the patient's chart and agree with current treatment. The patient is on antibiotic therapy consisting of Ciprofloxacin and Flagyl. The patient is on a clear liquid diet. Will continue to follow along in the patient's care. Hopefully over the next 24-48 hours, her abdominal pain will improve and her diet will be able to be advanced without difficulty. If the patient does improve with medical management, she will need a followup colonoscopy in roughly 4-6 weeks after resolution of her diverticulitis. Will continue to follow along closely with serial abdominal examinations during the patient's hospitalization. Repeat CBC in a.m. MTDD
[2017-07-01] MEDS: ALPRAZolam 1 MG TABLET PO PRN (22:12)
[2017-07-02] MEDS: NS 1,000 ML IV SCH ×3 (00:28→13:21)
[2017-07-02] MEDS: MetroNIDAZOLE PB 500 MG/100 ML BAG IV SCH ×3 (05:12→20:30)
--- NOTE | 2017-07-02 08:19 | General Surgery Progress Note ---
Subjective Patient reports: feels better, pain is less (one dose of Morphine about bedtime last night and she slept well, waking up surprised at how good she feels. She rates her pain yesterday with palpation at 9-10, and today with palpation 4-5. While at rest LLQ pain is 2-3), tolerating liquids well, voiding w/o difficulty , flatus (states passing quite a bit of flatus), no bowel movement, afebrile - Vital Signs Last Vital Signs Temp 96.5 F L 07/02/17 07:30 Pulse 61 07/02/17 07:30 Resp 16 07/02/17 07:30 BP 143/84 H 07/02/17 07:30 Pulse Ox 99 07/02/17 07:30 - Laboratory Result Diagrams: 07/02/17 04:58 07/01/17 05:19 - Abnormal Exam Abdominal: hypoactive bowel sounds, tender (mid and LLQ rated 4-5 with palpation ) - Normal Exam General: awake, alert, oriented Cardiovascular: regular rhythm, regular rate Respiratory: clear all larkin, no labored breathing Psychiatric: normal affect Neurological: CN 2-12 grossly intact Assessment and Plan (1) Diverticulitis of large intestine with perforation and abscess Current Visit: Yes Status: Acute Qualifiers: Diverticulitis bleeding: without bleeding Qualified Code(s): K57.20 - Diverticulitis of large intestine with perforation and abscess without bleeding Plan: She is showing good response to Cipro Flagyl regime for microperforation diverticulitis. Pain is noticeable less than yesterday and she is passing some flatus, no BM yet. Hospital Course Summary Disclaimer: The visit summary below is not to be considered part of the above Progress Note. Sepsis Assessment - Evaluation Sepsis screening result: No Definite Risk
[2017-07-02] MEDS: CIPROFLOXACIN PB 400 MG/200 ML BAG IV SCH ×2 (08:30→19:28)
[2017-07-02] MEDS: DULOXETINE 30 MG CAPSULE PO SCH (08:31)
[2017-07-02] MEDS: AMLODIPINE 5 MG TABLET PO SCH ×2 (08:31→20:31)
[2017-07-02] MEDS: TOPIRAMATE 25 MG TABLET PO SCH ×2 (08:31→20:31)
[2017-07-02] MEDS: ASPIRIN *EC* 81 MG TABLET PO SCH (08:31)
[2017-07-02] MEDS: ESTRADIOL 1 MG TABLET PO SCH (08:32)
[2017-07-02] MEDS: TRAMADOL 50 MG TABLET PO PRN ×2 (10:10→22:06)
--- NOTE | 2017-07-02 10:30 | Progress Note ---
Subjective: Overall feels much better, with less pain, no malaise no fever or chills. Has been constipated. Objective Vital signs: Temperature 96.5 F L 07/02/17 07:30 Pulse Rate 61 07/02/17 07:30 Respiratory Rate 16 07/02/17 07:30 Blood Pressure 143/84 H 07/02/17 07:30 Pulse Oximetry 99 07/02/17 07:30 Rhythm: Normal Sinus Rhythm Height/Weight/BMI: Height 5 ft 1 in Weight 80.9 kg Body Mass Index 33.2 - Constitutional Present: no acute distress - Routine HEENT Exam Head: Present: normocephalic, atraumatic Eye: Present: EOMI, PERRL - Routine Respiratory Exam Present: CTA bilaterally - Routine Cardiovascular Exam Present: RRR, S1, S2 - Routine Abdominal Exam Present: soft, non distended, non tender - Routine Extremities Exam Absent: cyanosis, clubbing, edema - Routine Neurological Exam Present: alert, oriented X3, CN II-XII intact - Routine Psychiatric Exam Present: normal affect, good insight, good judgment Results - Labs CBC & Chem 7: 07/02/17 04:58 07/01/17 05:19 Assessment and Plan (1) Fibromyalgia Current visit: Yes Status: Chronic (2) Major depressive disorder, recurrent, mild Current visit: No Status: Chronic (3) HTN (hypertension) Current visit: Yes Status: Chronic (4) Diverticulitis Current visit: Yes Status: Acute 06/30/17 21:19 Will start the pt on IVF, cipro _ flagyl IV Q8 hr, recheck labs in am, prn pain meds. clear diet for now, general surgery consulted through the ER. DVT Prophylaxis: SCD's GI Prophylaxis: Protonix Resuscitation Status: Full Code Assessment and Plan: DIAGNOSIS 1) Acute diverticulitis. Pt clinically very stable and has improved on Cipro + Flagyl. Will continue present Rx. - Time spent with patient 25 - 35 minutes Sepsis Assessment - Evaluation Sepsis screening result: No Definite Risk Hospital Course Summary Disclaimer: The visit summary below is not to be considered part of the above Progress Note.
[2017-07-02] MEDS: POLYETHYL GLYCOL 3350 17gm PACKET PO SCH (11:11)
--- NOTE | 2017-07-02 15:45 | Progress Note ---
DATE 07/02/2017 FINDINGS Ms. Santana today states that her abdominal pain has markedly improved. OBJECTIVE VITALS: Afebrile. Normotensive. Last recorded vitals include temperature 96.5 , pulse 61, respirations 16, blood pressure 143/84, SaO2 99% on room air. HEENT: Normocephalic. Pupils are equally round and react to light and accommodation. CHEST: Clear to auscultation bilaterally. HEART: Regular rate and rhythm. Normal S1, S2, without gallops, murmurs or clicks. ABDOMEN: Palpation of the abdomen today does indeed reveal significantly less tenderness. Left lower quadrant now only displays minimal tenderness upon palpation. There is no evidence for guarding or rebound. No evidence for hepatomegaly or other abnormal masses. LABORATORY/RADIOGRAPHIC EVALUATION The patient had a CBC today and her white count was 6.1. Hemoglobin was 11.8. No significant left shift was present. ASSESSMENT 46-year-old female with history for acute sigmoid diverticulitis. Patient has made marked clinical improvement. PLAN Will go ahead and begin to advance diet as tolerated. Will continue with current IV antibiotics through the course of today. If tomorrow the patient remains afebrile and continues to improve, will likely discharge to home on additional oral antibiotics. The patient will need colonoscopy and followup in 4-6 weeks following resolution of her diverticulitis. ANAY
[2017-07-02] MEDS: OMEPRAZOLE 20 MG CAPSULE PO SCH (17:41)
[2017-07-02] MEDS: SALINE FLUSH 10ml SYRINGE IVF PRN (19:31)
[2017-07-02] MEDS: ALPRAZolam 1 MG TABLET PO PRN (22:06)
[2017-07-03 00:02] VITALS: RESP 16
[2017-07-03] MEDS: NS 1,000 ML IV SCH ×2 (02:49→08:38)
[2017-07-03] MEDS: MetroNIDAZOLE PB 500 MG/100 ML BAG IV SCH ×2 (04:33→12:13)
[2017-07-03] MEDS: SALINE FLUSH 10ml SYRINGE IVF PRN (05:05)
[2017-07-03] MEDS: OMEPRAZOLE 20 MG CAPSULE PO SCH (06:21)
--- NOTE | 2017-07-03 07:41 | General Surgery Progress Note ---
Subjective Patient reports: feels better, pain is less (now minimal LLQ and mid abd pain. ) , tolerating a regular diet, flatus, no bowel movement (She tried prune juice and Miralax yesterday.), afebrile - Vital Signs Last Vital Signs Temp 96.7 F L 07/03/17 00:00 Pulse 72 07/03/17 00:00 Resp 16 07/03/17 00:00 BP 131/80 07/03/17 00:00 Pulse Ox 96 07/03/17 00:00 - Laboratory Result Diagrams: 07/03/17 05:04 07/03/17 05:04 - Abnormal Exam Abdominal: tender (tender only moderate palpation LLQ, much improved from yesterday and the day before.) - Normal Exam General: awake, alert Cardiovascular: regular rhythm, regular rate Respiratory: clear all larkin, no labored breathing Abdominal: BS normo active x4, soft Psychiatric: normal affect Neurological: CN 2-12 grossly intact Assessment and Plan (1) Diverticulitis of large intestine with perforation and abscess Current Visit: Yes Status: Acute Qualifiers: Diverticulitis bleeding: without bleeding Qualified Code(s): K57.20 - Diverticulitis of large intestine with perforation and abscess without bleeding Plan: She has shown significant improvement on Cipro and Flagyl IV. Tolerated regular diet for supper last evening. No BM yet, but is passing flatus. Will give her Milk of Magnesia this morning. Perhaps DC to home today on oral ABX. Plan on colonoscopy in about 6 weeks as an outpatient, once the diverticulitis has completely resolved. Follow up with Ophelia if abd pain returns. Hospital Course Summary Disclaimer: The visit summary below is not to be considered part of the above Progress Note. Sepsis Assessment - Evaluation Sepsis screening result: No Definite Risk
[2017-07-03 08:36] VITALS: BP 134/88; PULSE 64; TEMP 96.8; O2SAT 100
[2017-07-03] MEDS: ASPIRIN *EC* 81 MG TABLET PO SCH (08:38)
[2017-07-03] MEDS: CIPROFLOXACIN PB 400 MG/200 ML BAG IV SCH (08:38)
[2017-07-03] MEDS: DULOXETINE 30 MG CAPSULE PO SCH (08:38)
[2017-07-03] MEDS: AMLODIPINE 5 MG TABLET PO SCH (08:39)
[2017-07-03] MEDS: POLYETHYL GLYCOL 3350 17gm PACKET PO SCH (08:39)
[2017-07-03] MEDS: ESTRADIOL 1 MG TABLET PO SCH (08:39)
[2017-07-03] MEDS: TOPIRAMATE 25 MG TABLET PO SCH (08:39)
--- NOTE | 2017-07-03 11:47 | Progress Note ---
Subjective: Doing much better, no nausea or vomiting, less abdominal pain. Objective Vital signs: Temperature 96.8 F 07/03/17 08:35 Pulse Rate 64 07/03/17 08:35 Respiratory Rate 16 07/03/17 08:35 Blood Pressure 134/88 07/03/17 08:35 Pulse Oximetry 100 07/03/17 08:35 Rhythm: Normal Sinus Rhythm Height/Weight/BMI: Height 5 ft 1 in Weight 81.1 kg Body Mass Index 33.2 - Constitutional Present: no acute distress - Routine HEENT Exam Head: Present: normocephalic, atraumatic Eye: Present: EOMI, PERRL - Routine Respiratory Exam Present: CTA bilaterally - Routine Cardiovascular Exam Present: RRR, S1, S2 - Routine Abdominal Exam Present: soft, non distended, non tender - Routine Extremities Exam Absent: cyanosis, clubbing, edema - Routine Skin Exam Present: intact - Routine Neurological Exam Present: alert, oriented X3, CN II-XII intact - Routine Psychiatric Exam Present: normal affect, cooperative, good insight, good judgment Results - Labs CBC & Chem 7: 07/03/17 05:04 07/03/17 05:04 Assessment and Plan (1) Fibromyalgia Current visit: Yes Status: Chronic (2) Major depressive disorder, recurrent, mild Current visit: No Status: Chronic (3) HTN (hypertension) Current visit: Yes Status: Chronic (4) Diverticulitis Current visit: Yes Status: Acute 06/30/17 21:19 Will start the pt on IVF, cipro _ flagyl IV Q8 hr, recheck labs in am, prn pain meds. clear diet for now, general surgery consulted through the ER. Assessment and Plan: DIAGNOSIS 1) Acute diverticulitis. - Pt clinically very stable and has improved on Cipro + Flagyl. May consider transitioning to oral antibiotics and D/C home in the next 24 hrs. - Time spent with patient less than 15 minutes Sepsis Assessment - Evaluation Sepsis screening result: No Definite Risk Hospital Course Summary Disclaimer: The visit summary below is not to be considered part of the above Progress Note.
--- NOTE | 2017-07-03 14:43 | Progress Note ---
DATE 07/03/2017 FINDINGS Mrs. Santana today states that she continues to improve. She states that she does feel a little bit more "tired than usual". She still has some minimal discomfort present within her left lower quadrant upon questioning. OBJECTIVE VITALS: Afebrile. Normotensive. Current vitals include temperature 96.8, blood pressure 134/88, SaO2 100% on room air. HEENT: Normocephalic. Pupils are equally round and react to light and accommodation. CHEST: Clear to auscultation bilaterally. HEART: Regular rate and rhythm. Normal S1, S2, without gallops, murmurs or clicks. ABDOMEN: Palpation of the abdomen today reveals some minimal tenderness within the left lower quadrant. There is no evidence for guarding or rebound. LABORATORY/RADIOGRAPHIC EVALUATION The patient had a CBC today as well as a BMP. Lab work is unremarkable. She is slightly anemic with hemoglobin of 11.5. ASSESSMENT 46-year-old female with history for acute sigmoid diverticulitis. Patient has made marked clinical improvement since admission. PLAN I do believe the patient could be discharged today given the fact that she is tolerating a regular diet and her abdominal pain has since resolved. Would DC to home on additional antibiotics consisting of Cipro and Flagyl over the next 4 -7 days. The patient will need a followup colonoscopy in 4-6 weeks following resolution of her diverticulitis. This could be completed by her PCP or by myself if desired. The patient at this time to follow up with me on a p.r.n. basis following discharge. ANAY
--- NOTE | 2017-07-03 15:07 | Discharge Instructions ---
Discharge Plan - Med Rec/Dispo Referrals/Follow Up: Chapo Jacinto MD [Physician] - 5-6 Weeks (Follow Up with Dr. Jacinto in 6 weeks, unless pain returns- then see sooner.) [place] Instructions: Diverticulitis (DC), Diverticulitis Diet (DC) Prescriptions: New Ciprofloxacin [Cipro] 500 mg PO Q12HR 11 Days #22 tab MetroNIDAZOLE [Flagyl] 500 mg PO TIDWM 11 Days #33 tab Milk of Magnesia [Mom] 30 ml PO DAILY udc Continue Plexus Supplements 1 dose PO DAILY Celecoxib 100 mg PO BID #30 Cholecalciferol (Vitamin D3) [Vitamin D3] 1,000 unit PO BID #30 cyclobenzaprine 10 mg tablet 10 mg PO HS #90 tab metformin 1,000 mg tablet 1,000 mg PO BID #180 tab estradiol 1 mg tablet 1 mg PO DAILY #90 tab amitriptyline 10 mg tablet 10 mg PO HS PRN tab PRN Reason: Prn Orders aspirin 81 mg tablet,delayed release 81 mg PO DAILY tab duloxetine 30 mg capsule,delayed release 30 mg PO DAILY cap topiramate 50 mg tablet 50 mg PO BID #180 tab Prilosec (Omeprazole) 40 mg capsule,delayed release 40 mg PO DAILY #90 cap amlodipine 5 mg tablet 5 mg PO BID #180 tab multivitamin tablet 1 tab PO QAM alprazolam 1 mg tablet 1 mg PO BID PRN #60 tab PRN Reason: insomnia Discontinued Ultram (Tramadol) 50 mg tablet 50 mg PO DAILY PRN #0 PRN Reason: pain - Disposition 01 Discharged Home, Self-Care
--- NOTE | 2017-07-03 15:15 | Discharge Summary ---
Discharge Information Date of admission: 06/30/17 20:18 Attending Physician: Dimitris Tucker MD Primary care physician: Amandeep Hartley MD - Discharge Diagnosis (1) Fibromyalgia Status: Chronic (2) Major depressive disorder, recurrent, mild Status: Chronic (3) HTN (hypertension) Status: Chronic (4) Diverticulitis Status: Resolved - Laboratory Labs: 07/03/17 05:04 07/03/17 05:04 History of Present Illness HPI: The pt is a 46 yo who developed bilat abd pain 3 days ago, woke pt up from sleep , and has been constant and worsening since. She describes the pain as crampy, sharp. nonradiating, worse with any type of movement, not associated with loose stools or diarrhea, no melana, bloody stools. fever, chills. 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 Objective Vital signs: Temperature 96.8 F 07/03/17 08:35 Pulse Rate 64 07/03/17 08:35 Respiratory Rate 16 07/03/17 08:35 Blood Pressure 134/88 07/03/17 08:35 Pulse Oximetry 100 07/03/17 08:35 Rhythm: Normal Sinus Rhythm Height/Weight/BMI: Height 5 ft 1 in Weight 81.1 kg Body Mass Index 33.2 - Constitutional Present: no acute distress - Routine HEENT Exam Head: Present: normocephalic, atraumatic Eye: Present: EOMI, PERRL - Routine Respiratory Exam Present: CTA bilaterally - Routine Cardiovascular Exam Present: RRR, S1, S2 - Routine Abdominal Exam Present: soft, non distended, non tender - Routine Extremities Exam Absent: cyanosis, clubbing, edema - Routine Skin Exam Present: intact - Routine Neurological Exam Present: alert, oriented X3, CN II-XII intact - Routine Psychiatric Exam Present: normal affect, cooperative, good insight, good judgment Hospital Course Pt was admitted to the surgical unit and started on IV cipro + IV flagyl with improvement of symptoms rapidly. She is stable to go home. Per Surgery pt is to continue with Cipro and Flagyl to complete 2 weeks and then to have a Colonoscopy in 6 weeks or so. FINAL DIAGNOSIS 1) Acute diverticulitis. - Pt clinically very stable and has improved on Cipro + Flagyl. - Will D/C home with 11 days of the above antibiotics. F/U in 6 weeks for Colonoscopy. Time spent with patient: 25 - 35 minutes DVT Prophylaxis: other GI Prophylaxis: other Discharge Plan - Med Rec/Dispo Referrals/Follow Up: Chapo Jacinto MD [Physician] - 5-6 Weeks (Follow Up with Dr. Jacinto in 6 weeks, unless pain returns- then see sooner.) [place] Instructions: Diverticulitis (DC), Diverticulitis Diet (DC) Prescriptions: New Ciprofloxacin [Cipro] 500 mg PO Q12HR 11 Days #22 tab MetroNIDAZOLE [Flagyl] 500 mg PO TIDWM 11 Days #33 tab Milk of Magnesia [Mom] 30 ml PO DAILY udc Continue Plexus Supplements 1 dose PO DAILY Celecoxib 100 mg PO BID #30 Cholecalciferol (Vitamin D3) [Vitamin D3] 1,000 unit PO BID #30 cyclobenzaprine 10 mg tablet 10 mg PO HS #90 tab metformin 1,000 mg tablet 1,000 mg PO BID #180 tab estradiol 1 mg tablet 1 mg PO DAILY #90 tab amitriptyline 10 mg tablet 10 mg PO HS PRN tab PRN Reason: Prn Orders aspirin 81 mg tablet,delayed release 81 mg PO DAILY tab duloxetine 30 mg capsule,delayed release 30 mg PO DAILY cap topiramate 50 mg tablet 50 mg PO BID #180 tab Prilosec (Omeprazole) 40 mg capsule,delayed release 40 mg PO DAILY #90 cap amlodipine 5 mg tablet 5 mg PO BID #180 tab multivitamin tablet 1 tab PO QAM alprazolam 1 mg tablet 1 mg PO BID PRN #60 tab PRN Reason: insomnia Discontinued Ultram (Tramadol) 50 mg tablet 50 mg PO DAILY PRN #0 PRN Reason: pain - Disposition 01 Discharged Home, Self-Care
[2017-07-03] MEDS ORDERED: MetroNIDAZOLE 500 MG TABLET PO SCH (17:30)
[2017-07-03] MEDS ORDERED: METFORMIN 1,000 MG TABLET PO SCH (17:30)
[2017-07-03] MEDS ORDERED: CYCLOBENZAPRINE 10 MG TABLET PO SCH (21:00)
[2017-07-03] MEDS ORDERED: CIPROFLOXACIN 500 MG TABLET PO SCH (21:00)
[2017-07-04] MEDS ORDERED: OMEPRAZOLE 20 MG CAPSULE PO SCH (06:30)
[2017-07-04] MEDS ORDERED: MULTI-VITAMIN PLAIN TABLET PO SCH (09:00)
== END 2017-07-03 16:30 | disposition home or self-care (01) | DRG 392 ==
LOC: ED 17:35 → SRG 20:18
PROVIDERS: ADMIT Internal Medicine; ATTEND Internal Medicine